=== PATIENT | female | born 1965 | race Hispanic/Latino ===

== ENCOUNTER 2017-12-07 10:27 | Emergency (ER) | payer BC ==
[2017-12-07] MEDS ORDERED: ONDANSETRON 4 MG/2 ML VIAL ONE (11:38)
[2017-12-07] MEDS ORDERED: MORPHINE 4 MG/ML SYR ONE ×2 (11:38→12:44)
[2017-12-07 11:53] LABS: Absolute Lymphocytes (CBC) 2.3 K/uL (0.7-4.9); Absolute Monocytes 0.7 K/uL (0.1-1.3); Absolute Neutrophil 2.1 K/uL (1.8-8.0); Basophils % 0.4 % (0-1.3); Eosinophils % 2.9 % (0-4.4); Hematocrit 41.6 % (36.0-45.0); Lymphocytes % 43.7 % (15.3-44.8); MCH 28.7 pg (27.0-35.0); MCV 88.8 fL (80-100); MPV 9.1 fL (7.6-11.3); Monocytes % 14.1 % (3.3-12.3); RBC Red Blood Cell Count 4.69 M/uL (3.86-4.86)
[2017-12-07 12:09] LABS: Bicarbonate 27 mEq/L (21-31); Glucose Level 96 mg/dL (65-120); Lipase 18 U/L (22-51); Potassium 3.8 mEq/L (3.6-5.0); Sodium Level 140 mEq/L (135-145)
[2017-12-07 12:15] LABS: ALT/SGPT 40 IU/L (10-60); AST/SGOT 39 IU/L (10-42); Alkaline Phosphatase 72 IU/L (42-121); Amylase Level 43 U/L (28-100); BUN Blood Urea Nitrogen 11 mg/dL (6-20); Bilirubin Direct 0.1 mg/dL (0-0.2); Bilirubin Total 0.5 mg/dL (0.3-1.2); Protein, Total 7.1 g/dL (6.0-8.3)
[2017-12-07 12:44] LABS: Urine Bacteria <20 /HPF (<20); Urine Culture Reflex Order NOT NEEDED; Urine RBC <5 /HPF (NONE SEEN)
[2017-12-07 12:44] LABS: Urine Blood NEGATIVE (NEG); Urine Glucose NEGATIVE (NEG); Urine Protein NEGATIVE (NEG); Urine pH 6.5 (5.0-7.0)
--- NOTE | 2017-12-07 13:25 | EDPHYS ---
Physician Documentation [facility] Name: Tyesha Hernandez Age: 52 yrs Sex: Female : 1965 Arrival Date: 12/07/2017 Time: 10:28 Bed 17 Private MD: Rolf Bryant ED Physician Onur Hamm HPI: 12/07 11:37 This 52 yrs old Female presents to ER via Ambulatory with complaints of tw4 Abdominal Pain. 11:37 The patient presents with abdominal pain right lower quadrant. Onset: The tw4 symptoms/episode began/occurred yesterday. The symptoms do not radiate. Associated signs and symptoms: none. The symptoms are described as sharp. Modifying factors: The symptoms are alleviated by nothing, the symptoms are aggravated by nothing. Severity of pain: At its worst the pain was moderate in the emergency department the pain is unchanged. The patient has not experienced similar symptoms in the past. 11:37 The patient has been recently seen by a physician: yesterday, [facility] tw4 FSED. 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 - Hysterectomy lk1 Historical: - Allergies: 10:53 propoxyphene napsylate; lk1 10:53 ACETAMINOPHEN; lk1 10:53 Ciprofloxacin HCl; lk1 10:53 Metronidazole HCl; lk1 10:53 Levothyroxine Sodium; lk1 10:53 Iodine; lk1 10:53 Hydrocodone-Acetaminophen; lk1 10:53 Codeine; lk1 10:53 thyroid (pork); lk1 10:53 Sulfa (Sulfonamide Antibiotics); lk1 10:53 Clarithromycin; lk1 10:53 Latex, Natural Rubber; lk1 - PMHx: 10:53 Hypothyroidism; lk1 10:53 Hernia; lk1 - PSHx: 10:53 Appendectomy; Cholecystectomy; ; Disc surgery; Hysterectomy; Bladder lk1 suspension; - Immunization history:: Adult Immunizations up to date. - Social history:: Smoking status: Patient/guardian denies using tobacco. ROS: 11:37 Constitutional: Negative for fever, chills, and weight loss, Cardiovascular: Negative tw4 for chest pain, palpitations, and edema, Respiratory: Negative for shortness of breath, cough, wheezing, and pleuritic chest pain. 11:37 Abdomen/GI: Positive for abdominal pain, Negative for nausea and vomiting, nausea, vomiting, and diarrhea, nausea. 11:37 Back: Negative for injury and pain, : Negative for injury, bleeding, discharge, and tw4 swelling, MS/Extremity: Negative for injury and deformity, Skin: Negative for injury, rash, and discoloration, Neuro: Negative for headache, weakness, numbness, tingling, and seizure. Exam: 11:37 Constitutional: This is a well developed, well nourished patient who is awake, alert, tw4 and in no acute distress. Head/Face: Normocephalic, atraumatic. Chest/axilla: Normal chest wall appearance and motion. Nontender with no deformity. No lesions are appreciated. Cardiovascular: Regular rate and rhythm with a normal S1 and S2. No gallops, murmurs, or rubs. Normal PMI, no JVD. No pulse deficits. Respiratory: Lungs have equal breath sounds bilaterally, clear to auscultation and percussion. No rales, rhonchi or wheezes noted. No increased work of breathing, no retractions or nasal flaring. MS/ Extremity: Pulses equal, no cyanosis. Neurovascular intact. Full, normal range of motion. Neuro: Awake and alert, GCS 15, oriented to person, place, time, and situation. Cranial nerves II-XII grossly intact. Motor strength 5/5 in all extremities. Sensory grossly intact. Cerebellar exam normal. Normal gait. 11:37 Abdomen/GI: Inspection: abdomen appears normal, Bowel sounds: diminished, Palpation: moderate abdominal tenderness, in the right lower quadrant. Vital Signs: 10:54 BP 128 / 65; Pulse 65; Resp 16; Temp 98.7(TE); Pulse Ox 98% on R/A; Weight 70.31 kg lk1 (R); Height 5 ft. 1 in. (154.94 cm) (R); Pain 9/10; 11:30 BP 123 / 72; Pulse 62; Resp 18; Pulse Ox 99% on R/A; Pain 8/10; em 12:44 BP 122 / 75; Pulse 56; Resp 15; Pulse Ox 98% on R/A; mh5 14:00 BP 116 / 71; Pulse 59; Resp 16; Temp 98.0; Pulse Ox 99% on R/A; Pain 7/10; em 10:54 Body Mass Index 29.29 (70.31 kg, 154.94 cm) lk1 MDM: 10:55 Patient medically screened. tw4 11:37 Data reviewed: vital signs, nurses notes. Counseling: I had a detailed discussion with 4 the patient and/or guardian regarding: the historical points, exam findings, and any diagnostic results supporting the discharge/admit diagnosis. 12/07 10:55 Order name: Amylase, Serum; Complete Time: 12:41 [facility] 12/07 10:55 Order name: Basic Metabolic Panel; Complete Time: 12:41 4 12/07 10:55 Order name: CBC with Diff; Complete Time: 12:41 4 12/07 10:55 Order name: Creatinine for Radiology; Complete Time: 12:41 [facility] 12/07 10:55 Order name: Hepatic Function; Complete Time: 12:41 [facility] 12/07 10:55 Order name: Lipase; Complete Time: 12:41 [facility] 12/07 10:55 Order name: Urine Microscopic Only; Complete Time: 13:16 [facility] 12/07 12:22 Order name: Urine Dipstick--Ancillary (enter results); Complete Time: 13:16 12/07 10:55 Order name: IV Saline Lock; Complete Time: 12:16 4 12/07 10:55 Order name: Labs collected and sent; Complete Time: 12:16 [facility] 12/07 10:55 Order name: Urine Dipstick-Ancillary (obtain specimen); Complete Time: 12:16 tw4 Administered Medications: 11:47 Drug: morphine 4 mg Route: IVP; Site: right antecubital; iw 12:16 Follow up: Response: No adverse reaction; Pain is decreased em 11:47 Drug: Zofran 4 mg Route: IVP; Site: right antecubital; iw 12:17 Follow up: Response: No adverse reaction em 12:44 Drug: morphine 2 mg Route: IVP; Site: right antecubital; em 13:51 Follow up: Response: No adverse reaction em 14:02 Drug: TORadol 30 mg Route: IVP; Site: right antecubital; iw 14:07 Follow up: Response: Medication administered at discharge. em Disposition: 12/07/17 13:24 Discharged to Home. Impression: Generalized abdominal pain. - Condition is Stable. - Discharge Instructions: Abdominal Pain, Adult, Pain Without a Known Cause, Abdominal Pain, Women. - Medication Reconciliation Form, Thank You Letter, Antibiotic Education, Prescription Opioid Use form. - Follow up: Emergency Department; When: As needed; Reason: Recheck today's complaints, Continuance of care, Re-evaluation by your physician. - Problem is an ongoing problem. - Symptoms are unchanged. Signatures: Dispatcher [employer] Orion Anguiano, HEAD OF PARTNER DEVELOPMENT HEAD OF PARTNER DEVELOPMENT Sakshi Wallace RN RN iw Elise Mayo RN RN lk1 Onur Hamm MD MD tw4 Corrections: (The following items were deleted from the chart) 12:43 12:41 Abdomen 1 View (KUB)+RAD.RAD.BRZ ordered. [facility]
--- NOTE | 2017-12-07 13:25 | ER ---
Nurse's Notes [facility] Name: Tyesha Hernandez Age: 52 yrs Sex: Female : 1965 Arrival Date: 12/07/2017 Time: 10:28 Bed 17 Private MD: Rolf Bryant Diagnosis: Generalized abdominal pain Presentation: 12/07 10:49 Presenting complaint: Patient states: I have a really bad pain on my side (RLQ) for 3 lk1 days. I was at [facility] yesterday \T\ had an MRI and they told me I had scar tissue in there and I need to see my GI doctor. I have had a lot of surgeries. Transition of care: patient was not received from another setting of care. Onset of symptoms was December 04, 2017. Care prior to arrival: None. 10:49 Method Of Arrival: Ambulatory lk1 10:49 Acuity: GATO 3 lk1 Triage Assessment: 10:53 General: Appears in no apparent distress. uncomfortable, Behavior is calm, cooperative, lk1 appropriate for age. Pain: Complains of pain in suprapubic area and right lower quadrant Pain currently is 9 out of 10 on a pain scale. GI: Patient currently denies diarrhea, nausea, vomiting. 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 - Hysterectomy lk1 Historical: - Allergies: 10:53 propoxyphene napsylate; lk1 10:53 ACETAMINOPHEN; lk1 10:53 Ciprofloxacin HCl; lk1 10:53 Metronidazole HCl; lk1 10:53 Levothyroxine Sodium; lk1 10:53 Iodine; lk1 10:53 Hydrocodone-Acetaminophen; lk1 10:53 Codeine; lk1 10:53 thyroid (pork); lk1 10:53 Sulfa (Sulfonamide Antibiotics); lk1 10:53 Clarithromycin; lk1 10:53 Latex, Natural Rubber; lk1 - PMHx: 10:53 Hypothyroidism; lk1 10:53 Hernia; lk1 - PSHx: 10:53 Appendectomy; Cholecystectomy; ; Disc surgery; Hysterectomy; Bladder lk1 suspension; - Immunization history:: Adult Immunizations up to date. - Social history:: Smoking status: Patient/guardian denies using tobacco. Screenin:47 Abuse screen: Denies threats or abuse. Nutritional screening: No deficits noted. em Tuberculosis screening: No symptoms or risk factors identified. Fall Risk None identified. Assessment: 11:30 General: Appears in no apparent distress. uncomfortable, Behavior is cooperative, em crying. Pain: Complains of pain in right lower quadrant Pain currently is 10 out of 10 on a pain scale. Quality of pain is described as sharp, Pain began 2-3 days ago. Neuro: Level of Consciousness is awake, alert, obeys commands, Oriented to person, place, time, situation. Cardiovascular: Capillary refill < 3 seconds Patient's skin is warm and dry. Respiratory: Airway is patent Respiratory effort is even, unlabored, Respiratory pattern is regular, symmetrical. GI: Abdomen is round non-distended, Bowel sounds present X 4 quads. Abd is soft X 4 quads Abdomen is tender to palpation in right lower quadrant and left lower quadrant. : Urine is clear. EENT: No signs and/or symptoms were reported regarding the EENT system. Derm: Skin is intact, Skin is pink, warm \T\ dry. Musculoskeletal: Range of motion: intact in all extremities. 11:36 General: The previous assessment is accurate, call light remains within reach. . ss 12:29 Reassessment: Patient appears in no apparent distress at this time. Patient and/or em family updated on plan of care and expected duration. Pain level reassessed. Patient is alert, oriented x 3, equal unlabored respirations, skin warm/dry/pink. 13:25 Reassessment: Patient appears in no apparent distress at this time. Patient and/or em family updated on plan of care and expected duration. Pain level reassessed. Patient is alert, oriented x 3, equal unlabored respirations, skin warm/dry/pink. Patient states feeling better. Vital Signs: 10:54 BP 128 / 65; Pulse 65; Resp 16; Temp 98.7(TE); Pulse Ox 98% on R/A; Weight 70.31 kg lk1 (R); Height 5 ft. 1 in. (154.94 cm) (R); Pain 9/10; 11:30 BP 123 / 72; Pulse 62; Resp 18; Pulse Ox 99% on R/A; Pain 8/10; em 12:44 BP 122 / 75; Pulse 56; Resp 15; Pulse Ox 98% on R/A; mh5 14:00 BP 116 / 71; Pulse 59; Resp 16; Temp 98.0; Pulse Ox 99% on R/A; Pain 7/10; em 10:54 Body Mass Index 29.29 (70.31 kg, 154.94 cm) lk1 ED Course: 10:28 Patient arrived in ED. as 10:28 Rolf Bryant MD is Private Physician. as 10:50 Triage completed. lk1 10:54 Arm band placed on right wrist. lk1 10:55 Onur Hamm MD is Attending Physician. tw4 11:08 Orion Lee LVN is Primary Nurse. em 12:39 Urine collected: clean catch specimen, clear. 5 12:40 No provider procedures requiring assistance completed. Initial lab(s) drawn, by me, em sent to lab. Inserted saline lock: 20 gauge in right antecubital area, using aseptic technique. Blood collected. 12:47 Patient has correct armband on for positive identification. Bed in low position. Call em light in reach. Side rails up X2. 14:09 IV discontinued, intact, bleeding controlled, No redness/swelling at site. Pressure em dressing applied. Administered Medications: 11:47 Drug: morphine 4 mg Route: IVP; Site: right antecubital; iw 12:16 Follow up: Response: No adverse reaction; Pain is decreased em 11:47 Drug: Zofran 4 mg Route: IVP; Site: right antecubital; iw 12:17 Follow up: Response: No adverse reaction em 12:44 Drug: morphine 2 mg Route: IVP; Site: right antecubital; em 13:51 Follow up: Response: No adverse reaction em 14:02 Drug: TORadol 30 mg Route: IVP; Site: right antecubital; iw 14:07 Follow up: Response: Medication administered at discharge. em Outcome: 13:24 Discharge ordered by . tw4 14:08 Discharged to home ambulatory. em 14:08 Condition: good 14:08 Discharge instructions given to patient, Instructed on discharge instructions, follow up and referral plans. Demonstrated understanding of instructions, follow-up care. 14:13 Patient left the ED. em Signatures: Orion Lee LVN LVN em Kaleigh Ch Irene, RN RN Asya Crowley RN RN Elise Mayo RN RN [facility] Norma Ch [facility] Noris, Onur, MD MD tw4
[2017-12-07] MEDS ORDERED: KETOROLAC 30 MG/ML INJ ONE (14:13)
[2017-12-07 14:29] VITALS: BP 116/71; TEMP 98; O2SAT 99
== END 2017-12-07 14:13 | disposition home or self-care (01) ==
LOC: ER 10:27
DX: R10.84 Generalized abdominal pain (principal); E03.9 Hypothyroidism, unspecified; Z88.2 Allergy status to sulfonamides; Z88.3 Allergy status to other anti-infective agents; Z88.5 Allergy status to narcotic agent; Z88.6 Allergy status to analgesic agent; Z91.040 Latex allergy status; Z91.048 Other nonmedicinal substance allergy status
CPT/HCPCS: 36415; 80048; 80076; 81003; 81015; 82150; 83690; 85025; 96374; 96375; 99284; J2405

== ENCOUNTER 2019-04-05 11:15 | Emergency (ER) | payer BC ==
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
--- OUTSIDE RECORDS SUMMARY | 2019-04-05 11:20 | XMS REPORT | Summary of Care ---
:1965 Author Encounter HQ Rachel_margarita(MIRELLA) [id number] Date(s): 01/23/15 - 01/23/15 [facility] Outpatient Imaging [address] [address]- [phone] Discharge Disposition: Home Physician Attending: Dion Pride MD Vital Signs No data available for this section Problem List No data available for this section Allergies, Adverse Reactions, Alerts Substance Reaction Severity Status Biaxin Active codeine Active Flagyl Active iodine topical Active Latex Active morphine Active sulfa drugs Active tape Active Medications No data available for this section Results No data available for this section Immunizations No data available for this section Procedures No data available for this section Social History No data available for this section Assessment and Plan No data available for this section
--- OUTSIDE RECORDS SUMMARY | 2019-04-05 11:20 | XMS REPORT | Summary of Care ---
:1965 Author Encounter FANNY Parikh(MIRELLA) [id number] Date(s): 02/06/15 - 02/06/15 [facility] Outpatient Imaging [address] [address]- [phone] Discharge Disposition: Home Physician Attending: Dion Pride MD Vital Signs No data available for this section Problem List Condition Effective Dates Status Health Status Informant AMI (acute myocardial Resolved infarction)(Confirmed) Asthma(Confirmed) Resolved DVT (deep venous < 2010 Resolved thrombosis)(Confirmed)1 Hypothyroidism(Confirmed) Resolved Polycystic ovarian Resolved disease(Confirmed) 1left leg Allergies, Adverse Reactions, Alerts Substance Reaction Severity Status Biaxin Active ciprofloxacin Active codeine Active Flagyl Active HYDROcodone Active iodine topical Active Latex Active sulfa drugs Active tape Active Medications No data available for this section Results No data available for this section Immunizations No data available for this section Procedures No data available for this section Social History Social History Type Response Smoking Status Never smoker; Exposure to Tobacco Smoke None; Cigarette Smoking Last 365 Days No; Reg Smoking Cessation Counseling No Assessment and Plan No data available for this section
--- OUTSIDE RECORDS SUMMARY | 2019-04-05 11:20 | XMS REPORT | Summary of Care ---
:1965 Author Organization [facility] Outpatient Imaging [place] Address [address] [place], [place] [address]- Encounter HQ Encntr_alidieudonne(FIN) [id number] Date(s): 06/03/17 - 06/03/17 [facility] Outpatient Imaging [address], [address] [place] [address]- [phone] Discharge Disposition: Home or Self Care Attending Physician: Kaylee Menendez MD Vital Signs No data available for [...]
--- OUTSIDE RECORDS SUMMARY | 2019-04-05 11:20 | XMS REPORT | Summary of Care ---
:1965 Author Organization [facility] Address [address] [place] [address]- Encounter HQ Jl(FIN) [id number] Date(s): 07/30/18 - 07/30/[address] [phone] Encounter Diagnosis Other intervertebral disc displacement, lumbosacral region (Final) - 08/04/18 Spinal stenosis, lumbar region without neurogenic claudication (Final) - Other intervertebral disc degeneration, lumbar region (Final) - Other specified postprocedural states (Final) - Discharge Disposition: Home or Self Care Attending Physician: Zoila Cunha MD Referring Physician: Physician, Non Associated MD Vital Signs No data available for this section Problem List Condition Effective Dates Status Health Status Informant AMI (acute myocardial Resolved infarction)(Confirmed) Asthma(Confirmed) Resolved DVT (deep venous < 2010 Resolved thrombosis)(Confirmed)1 Hypothyroidism(Confirmed) Resolved Polycystic ovarian Resolved disease(Confirmed) 1left leg Allergies, Adverse Reactions, Alerts Substance Reaction Severity Status tape Active sulfa drugs Active iodine topical Active ciprofloxacin Active codeine Active Flagyl Active Biaxin Active Latex Active HYDROcodone Active Medications No data available for this section Results Most recent to oldest [Reference Range]: 1 eGFR 114 mL/min/1.73m2 1 *NA* (07/30/18 7:10 AM) Creatinine Lvl [0.50-1.40 mg/dL] 0.47 mg/dL *LOW* (07/30/18 7:10 AM) 1Result Comment: The eGFR is calculated using the CKD-EPI formula. In most young , healthy individualsthe eGFR will be >90 mL/min/1.73m2. The eGFR declines with age. An eGFR of 60-89 may be normal insome populations, particularly the elderly, for whom the CKD-EPI formula has not been extensively validated. Use of the eGFR is not recommended in the following populations: Individuals with unstable creatinine concentrations, including patients and those with serious co-morbid conditions. Patients with extremes in muscle mass or diet. The data above are obtained from the National Kidney Disease Education Program ( NKDEP) which additionally recommends that when the eGFR is used in patients with extremes of body mass index for purposesof drug dosing, the eGFR should be multiplied by the estimated BMI. Immunizations No data available for this section Procedures No data available for this section Social History Social History Type Response Smoking Status Never smoker; Exposure to Tobacco Smoke None; Cigarette Smoking Last 365 Days No; Reg Smoking Cessation Counseling No entered on: 12/06/17 Assessment and Plan No data available for this section
--- OUTSIDE RECORDS SUMMARY | 2019-04-05 11:20 | XMS REPORT | Summary of Care ---
:1965 Author Encounter FANNY Parikh(MIRELLA) [id number] Date(s): 01/29/15 - 01/29/15 [facility] [address] [place] [address]- Discharge Diagnosis: Abdominal hematoma Discharge Disposition: Home Physician Attending: Julio Encinas MD Vital Signs Most recent to oldest [Reference Range]: 1 Height 162.56 cm (01/29/15 2:26 PM) Temperature Oral [96.4-99.1 DegF] 97.2 DegF (01/29/15 2:26 PM) Blood Pressure [90-140/60-90 mmHg] 116/54 mmHg (01/29/15 2:26 PM) Respiratory Rate [14-20 BRMIN] 16 BRMIN (01/29/15 2:26 PM) Peripheral Pulse Rate [60-100 bpm] 82 bpm (01/29/15 2:26 PM) Weight 74.545 kg (01/29/15 2:26 PM) Body Mass Index 28.21 m2 (01/29/15 2:26 PM) Problem List Condition Effective Dates Status Health [...]
--- OUTSIDE RECORDS SUMMARY | 2019-04-05 11:20 | XMS REPORT | Summary of Care ---
:1965 Author Organization [facility] Address [address] [place] [address]- Encounter HQ Jl(FIN) [id number] Date(s): 12/06/17 - 12/06/[address] [phone] Encounter Diagnosis Abdominal pain in female (Discharge Diagnosis) - 12/06/17 Unspecified ovarian cyst, left side (Final) - 12/11/17 Discharge Disposition: Home or Self Care Attending Physician: Kayla Vivas MD Vital Signs Most recent to oldest [Reference 1 2 3 Range]: Height 154.94 cm (12/06/17 1:37 PM) Temperature Oral [96.4-99.1 DegF] 98.2 DegF 98.3 DegF 98 DegF (12/06/17 6:42 PM) (12/06/17 5:40 PM) (12/06/17 1:37 PM) Blood Pressure [90-140/60-90 mmHg] 110/72 mmHg 129/69 mmHg 130/70 mmHg (12/06/17 6:42 PM) (12/06/17 5:40 PM) (12/06/17 1:37 PM) Respiratory Rate [14-20 BRMIN] 16 BRMIN 17 BRMIN 16 BRMIN (12/06/17 6:42 PM) (12/06/17 5:40 PM) (12/06/17 1:37 PM) Peripheral Pulse Rate [60-100 bpm] 76 bpm 65 bpm 61 bpm (12/06/17 6:42 PM) (12/06/17 5:40 PM) (12/06/17 1:37 PM) Weight 72.727 kg (12/06/17 1:37 PM) Body Mass Index 30.29 m2 (12/06/17 1:37 PM) Problem List Condition Effective Dates Status Health Status Informant AMI (acute myocardial Resolved infarction)(Confirmed) Asthma(Confirmed) Resolved DVT (deep venous < 2011 Resolved thrombosis)(Confirmed)1 Hypothyroidism(Confirmed) Resolved Polycystic ovarian Resolved disease(Confirmed) 1left leg Allergies, Adverse Reactions, Alerts Substance Reaction Severity Status tape Active sulfa drugs Active iodine topical Active ciprofloxacin Active codeine Active Flagyl Active Biaxin Active Latex Active HYDROcodone Active Medications morphine Sulfate 4 mg, Route: IVP, ONCE, Dosing Weight 72.727, kg, Priority: STAT, Start date: 16:47:00 CDT,Stop date: 12/06/17 16:47:00 CDT Start Date: 12/06/17 Stop Date: 12/06/17 Status: Completedmorphine Sulfate 4 mg, 1 mL, Route: IVP, Drug form: SOLN, ONCE, Dosing Weight 72.727, kg, Priority: STAT, Start date:12/06/17 13:40:00 CDT, Stop date: 12/06/17 13:40:00 CDT Notes: (Same as:MORPhine Sulfate) Start Date: 12/06/17 Stop Date: 12/06/17 Status: Completedondansetron 4 mg, 2 mL, Route: IVP, Drug form: INJ, ONCE, Dosing Weight 72.727, kg, Priority : STAT, Start date: 12/06/17 13:40:00 CDT, Stop date: 12/06/17 13:40:00 CDT Notes: (Same as: Cecil) MEDICATION WASTE Product Size: 4 mgProduct Wasted: ___ mg Start Date: 12/06/17 Stop Date: 12/06/17 Status: CompletedSaline Flush 0.9% 10 mL, Route: IVP, Drug Form: INJ, Dosing Weight 74.545, kg, PRN, PRN Line Flush , Start date: 12/06/17 13:40:00 CDT, Duration: 30 day, Stop date: 01/05/18 13:39 :00 CDT Notes: (Same as: BD Posiflush) Start Date: 12/06/17 Stop Date: 12/06/17 Status: DiscontinuedSodium Chloride 0.9% (Bolus) IV 1,000 mL, 1000 ml/hr, Infuse Over: 1 hr, Route: IV, 1,000, Drug form: INJ, ONCE , Priority: STAT, Dosing Weight 72.727 kg, Start date: 12/06/17 13:40:00 CDT, Stop date: 12/06/17 13:40:00 CDT Start Date: 12/06/17 Stop Date: 12/06/17 Status: Completed Results ELECTROLYTES Most recent to oldest [Reference Range]: 1 Sodium Lvl [135-145 mEq/L] 140 mEq/L (12/06/17 1:51 PM) Potassium Lvl [3.5-5.1 mEq/L] 3.5 mEq/L (12/06/17 1:51 PM) Chloride Lvl [95-109 mEq/L] 108 mEq/L (12/06/17 1:51 PM) CO2 [24-32 mEq/L] 29 mEq/L (12/06/17 1:51 PM) AGAP [10.0-20.0 mEq/L] 6.5 mEq/L *LOW* (12/06/17 1:51 PM) CHEM PANEL Most recent to oldest [Reference Range]: 1 Creatinine Lvl [0.50-1.40 mg/dL] 0.53 mg/dL (12/06/17 1:51 PM) eGFR 110 mL/min/1.73m2 1 *NA* (12/06/17 1:51 PM) BUN [7-22 mg/dL] 9 mg/dL (12/06/17 1:51 PM) B/C Ratio [6-25] 17 (12/06/17 1:51 PM) Glucose Lvl [70-99 mg/dL] 81 mg/dL (12/06/17 1:51 PM) Total Protein [6.4-8.4 g/dL] 7.6 g/dL (12/06/17 1:51 PM) Albumin Lvl [3.5-5.0 g/dL] 3.5 g/dL (12/06/17 1:51 PM) Globulin [2.7-4.2 g/dL] 4.1 g/dL (12/06/17 1:51 PM) A/G Ratio [0.7-1.6] 0.9 (12/06/17 1:51 PM) Calcium Lvl [8.5-10.5 mg/dL] 8.7 mg/dL (12/06/17 1:51 PM) ALT [0-65 unit/L] 36 unit/L (12/06/17 1:51 PM) AST [0-37 unit/L] 26 unit/L (12/06/17 1:51 PM) Alk Phos [39-136 unit/L] 86 unit/L (12/06/17 1:51 PM) Bili Total [0.2-1.3 mg/dL] 0.3 mg/dL (12/06/17 1:51 PM) Lipase Lvl [73-393 unit/L] 133 unit/L (12/06/17 1:51 PM) 1Result Comment: The eGFR is calculated using [...] eGFR should be multiplied by the estimated BMI.ENDOCRINOLOGY Most recent to oldest [Reference Range]: 1 hCG Tot <1 mIU/mL *NA* (12/06/17 1:51 PM) URINE AND STOOL Most recent to oldest [Reference Range]: 1 UA Turbidity [Clear] Clear (12/06/17 1:51 PM) UA Color [Yellow] Yellow *NA* (12/06/17 1:51 PM) UA pH [5.0-8.0] 6.0 (12/06/17 1:51 PM) UA Spec Grav [<=1.030] 1.010 (12/06/17 1:51 PM) UA Glucose [Negative mg/dL] Negative mg/dL *NA* (12/06/17 1:51 PM) UA Blood [Negative] Negative (12/06/17 1:51 PM) UA Ketones [Negative mg/dL] Negative mg/dL *NA* (12/06/17 1:51 PM) UA Protein [Negative mg/dL] Negative mg/dL (12/06/17 1:51 PM) UA Urobilinogen [0.1-1.0 mg/dL] <=1.0 mg/dL *NA* (12/06/17 1:51 PM) UA Bili [Negative] Negative *NA* (12/06/17 1:51 PM) UA Leuk Est [Negative] Negative (12/06/17 1:51 PM) UA Nitrite [Negative] Negative (12/06/17 1:51 PM) UA WBC [0-5 /HPF] <1 /HPF (12/06/17 1:51 PM) UA RBC [0-2 /HPF] 2 /HPF (12/06/17 1:51 PM) UA Bacteria [None Seen /HPF] Occasional /HPF *NA* (12/06/17 1:51 PM) UA Sq Epi [Few /LPF] Occasional /LPF *NA* (12/06/17 1:51 PM) UA Mucus [None Seen /LPF] Few /LPF *NA* (12/06/17 1:51 PM) HEMATOLOGY Most recent to oldest [Reference Range]: 1 WBC [3.7-10.4 K/CMM] 6.6 K/CMM (12/06/17 1:51 PM) RBC [4.20-5.40 M/CMM] 4.77 M/CMM (12/06/17 1:51 PM) Hgb [12.0-16.0 g/dL] 14.2 g/dL (12/06/17 1:51 PM) Hct [36.0-48.0 %] 41.3 % (12/06/17 1:51 PM) MCV [80.0-98.0 fL] 86.6 fL (12/06/17 1:51 PM) MCH [27.0-31.0 pg] 29.8 pg (12/06/17 1:51 PM) MCHC [32.0-36.0 g/dL] 34.4 g/dL (12/06/17 1:51 PM) RDW [11.5-14.5 %] 16.3 % *HI* (12/06/17 1:51 PM) MPV [7.4-10.4 fL] 8.5 fL (12/06/17 1:51 PM) Platelet [133-450 K/CMM] 267 K/CMM (12/06/17 1:51 PM) Segs [45.0-75.0 %] 45.0 % (12/06/17 1:51 PM) Lymphocytes [20.0-40.0 %] 38.7 % (12/06/17 1:51 PM) Monocytes [2.0-12.0 %] 12.7 % *HI* (12/06/17 1:51 PM) Eosinophils [0.0-4.0 %] 3.1 % (12/06/17 1:51 PM) Basophils [0.0-1.0 %] 0.5 % (12/06/17 1:51 PM) Segs-Bands # [1.5-8.1 K/CMM] 3.0 K/CMM (12/06/17 1:51 PM) Lymphocytes # [1.0-5.5 K/CMM] 2.6 K/CMM (12/06/17 1:51 PM) Monocytes # [0.0-0.8 K/CMM] 0.8 K/CMM (12/06/17 1:51 PM) Eosinophils # [0.0-0.5 K/CMM] 0.2 K/CMM (12/06/17 1:51 PM) PT [12.0-14.7 seconds] 12.1 seconds (12/06/17 1:51 PM) INR [0.85-1.17] 0.90 (12/06/17 1:51 PM) PTT [22.9-35.8 seconds] 25.1 seconds (12/06/17 1:51 PM) Immunizations No data available for this section Procedures No data available for this section Social History Social History Type Response Smoking Status Never smoker; Exposure to Tobacco Smoke None; Cigarette Smoking Last 365 Days No; Reg Smoking Cessation Counseling No entered on: 12/06/17 Assessment and Plan No data available for this section
--- NOTE | 2019-04-05 12:41 | RAD REPORT ---
EXAM DESCRIPTION: CT - Head Brain Wo Cont - 04/05/2019 12:22 pm CLINICAL HISTORY: HEADACHE, left-side COMPARISON: CT; Head^01_ROUTINE_HEAD (Adult) 08/07/2014; . TECHNIQUE: Axial 5 mm thick images of the head were obtained without IV contrast. All CT scans are performed using dose optimization technique as appropriate and may include automated exposure control or mA/KV adjustment according to patient size. FINDINGS: No intracranial hemorrhage, mass, edema or shift of mid-line structures. No acute infarcti on changes seen. No abnormal extra-axial fluid collections. Ventricles are normal. Mastoid air cells and visualized portions of the paranasal sinuses are clear. No acute bony findings. Intracranial findings are similar to comparison. IMPRESSION: Negative non-contrast CT head examination.
--- NOTE | 2019-04-05 12:49 | EDPHYS ---
Physician Documentation [facility] Name: Tyesha Hernandez Age: 54 yrs Sex: Female : 1965 Arrival Date: 04/05/2019 Time: 11:18 Bed 16 Private MD: Rolf Bryant ED Physician Romulo Torres HPI: 04/05 12:12 This 54 yrs old Female presents to ER via Ambulatory with complaints of rn Headache, Eye Problem, Eye Pain. 12:12 The patient complains of pain to the left side of head. The patient describes the rn headache as aching. Onset: The symptoms/episode began/occurred yesterday. Severity of symptoms: At its worst the pain was mild, in the emergency department the pain is unchanged. Headache History: Denies prior headaches. The symptoms are alleviated by nothing. the symptoms are aggravated by nothing. The patient has not experienced similar symptoms in the past. The patient has been recently seen by a physician:. Reports red eye started Thursday, no trauma or straining, seen by her eye doctor, told her pressures were normal and that was from busted blood vessel. No focal neurological complaint, vision is at baseline, concerned when headache started because has family history of strokes and diabetes. . 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 - Family history:: not pertinent. - Social history:: Smoking status: unknown. - Ebola Screening: : No symptoms or risks identified at this time. - Hospitalizations: : No recent hospitalization is reported. ROS: 12:12 Constitutional: Negative for fever, chills, and weight loss, Eyes: + redness/blood of rn left eye Neck: Negative for injury, pain, and swelling, Cardiovascular: Negative for chest pain, palpitations, and edema, Respiratory: Negative for shortness of breath, cough, wheezing, and pleuritic chest pain, Abdomen/GI: Negative for abdominal pain, nausea, vomiting, diarrhea, and constipation, MS/Extremity: Negative for injury and deformity, Skin: Negative for injury, rash, and discoloration, Neuro: + headache, no focal weakness/numbness Exam: 12:12 Constitutional: This is a well developed, well nourished patient who is awake, alert, rn and in no acute distress. Head/Face: Normocephalic, atraumatic. Eyes: + left subconjunctival hemorrhage, PERRL, no signs of trauma, no corneal defect, no hyphema or hypopyon. Neuro: Awake and alert, GCS 15, oriented to person, place, time, and situation. Cranial nerves II-XII grossly intact. Motor strength 5/5 in all extremities. Sensory grossly intact. Cerebellar exam normal. Normal gait. Vital Signs: 11:29 BP 121 / 77; Pulse 71; Resp 18; Temp 97.8(TE); Pulse Ox 99% on R/A; Weight 68.04 kg; hj Height 5 ft. 1 in. (154.94 cm); Pain 8/10; 11:29 Body Mass Index 28.34 (68.04 kg, 154.94 cm) hj Ke Coma Score: 12:45 Eye Response: spontaneous(4). Verbal Response: oriented(5). Motor Response: obeys rn commands(6). Total: 15. MDM: 12:06 Patient medically screened. rn 12:45 Differential diagnosis: glaucoma, hypertensive headache, migraine, neoplasm, tension rn headache. Data reviewed: vital signs, nurses notes, radiologic studies, CT scan, and as a result, I will discharge patient. Counseling: I had a detailed discussion with the patient and/or guardian regarding: the historical points, exam findings, and any diagnostic results supporting the discharge/admit diagnosis, the need for outpatient follow up, to return to the emergency department if symptoms worsen or persist or if there are any questions or concerns that arise at home. Special discussion: I discussed with the patient/guardian in detail that at this point there is no indication for admission to the hospital. It is understood, however, that if the symptoms persist or worsen the patient needs to return immediately for re-evaluation. Based on the history and exam findings, there is no indication for further emergent testing or inpatient evaluation. I discussed with the patient/guardian the need to see the opthamologist for further evaluation of the symptoms. ED course: CT head negative, normal neuro exam, seen by ophthalmology when this started and pressures and rest of exam normal per patient, will dc home with return precautions and instructions to f/u with eye doctor again if persists.. 04/05 12:12 Order name: CT Head Brain wo Cont; Complete Time: 12:45 rn Administered Medications: No medications were administered Disposition: 04/05/19 12:48 Discharged to Home. Impression: Headache, Subconjunctival hemorrhage. - Condition is Stable. - Discharge Instructions: General Headache Without Cause, Subconjunctival Hemorrhage. - Medication Reconciliation Form, Thank You Letter, Antibiotic Education, Prescription Opioid Use, Work release form form. - Follow up: Private Physician; When: As needed; Reason: Recheck today's complaints, Re-evaluation by your physician. - Problem is an ongoing problem. - Symptoms have improved. Signatures: Dispatcher [employer] EDMS Romulo Torres MD MD rn Joaquin, Henry, RN RN hj Leal, Jahala, RN RN jl7 Corrections: (The following items were deleted from the chart) 13:20 12:48 04/05/2019 12:48 Discharged to Home. Impression: Headache; Subconjunctival jl7 hemorrhage. Condition is Stable. Forms are Medication Reconciliation Form, Thank You Letter, Antibiotic Education, Prescription Opioid Use. Follow up: Private Physician; When: As needed; Reason: Recheck today's complaints, Re-evaluation by your physician. Problem is an ongoing problem. Symptoms have improved. rn
--- NOTE | 2019-04-05 12:49 | ER ---
Nurse's Notes [facility] Name: Tyesha Hernandez Age: 54 yrs Sex: Female : 1965 Arrival Date: 04/05/2019 Time: 11:18 Bed 16 Private MD: Rolf Bryant Diagnosis: Headache;Subconjunctival hemorrhage Presentation: 04/05 11:28 Presenting complaint: Patient states: my L eye has been really red since Thursday and the hj L side headache that goes with it, im concerned about it;denies N/V;. Transition of care: patient was not received from another setting of care. Onset of symptoms was April 05, 2019. Risk Assessment: Do you want to hurt yourself or someone else? Patient reports no desire to harm self or others. Initial Sepsis Screen: Does the patient meet any 2 criteria? No. Patient's initial sepsis screen is negative. Does the patient have a suspected source of infection? No. Patient's initial sepsis screen is negative. Care prior to arrival: None. 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 - Family history:: not pertinent. - Social history:: Smoking status: unknown. - Ebola Screening: : No symptoms or risks identified at this time. - Hospitalizations: : No recent hospitalization is reported. Screenin:00 Abuse screen: Denies threats or abuse. Denies injuries from another. Nutritional jl7 screening: No deficits noted. Tuberculosis screening: No symptoms or risk factors identified. Fall Risk None identified. Assessment: 12:00 General: Appears in no apparent distress. uncomfortable. Pain: Complains of pain in jl7 left eye and left orthodoxy Pain does not radiate. Pain currently is 8 out of 10 on a pain scale. Pain began 2-3 days ago. Is continuous. Neuro: Level of Consciousness is awake, alert, obeys commands, Oriented to person, place, time, situation, Speech is normal, Facial symmetry appears normal. Cardiovascular: Patient's skin is warm and dry. Respiratory: Airway is patent Respiratory effort is even, unlabored, Respiratory pattern is regular, symmetrical. EENT: Sclera/Cornea are reddened in outer aspect of conjuctiva of left eye and inner aspect of conjunctiva of left eye. Derm: Skin is pink, warm \T\ dry. Vital Signs: 11:29 BP 121 / 77; Pulse 71; Resp 18; Temp 97.8(TE); Pulse Ox 99% on R/A; Weight 68.04 kg; hj Height 5 ft. 1 in. (154.94 cm); Pain 8/10; 11:29 Body Mass Index 28.34 (68.04 kg, 154.94 cm) hj Regina Coma Score: 12:45 Eye Response: spontaneous(4). Verbal Response: oriented(5). Motor Response: obeys rn commands(6). Total: 15. ED Course: 11:18 Patient arrived in ED. dp 11:19 Rolf Bryant MD is Private Physician. dp 11:29 Triage completed. hj 11:29 Arm band placed on right wrist. hj 11:38 Antionette Birmingham RN is Primary Nurse. jl7 12:00 Patient has correct armband on for positive identification. Bed in low position. Call jl7 light in reach. Side rails up X 1. Pulse ox on. NIBP on. 12:06 Romulo Torres MD is Attending Physician. rn 12:26 CT Head Brain wo Cont In Process Unspecified. EDMS 13:19 No provider procedures requiring assistance completed. Patient did not have IV access jl7 during this emergency room visit. Administered Medications: No medications were administered Outcome: 12:48 Discharge ordered by MD. rn 13:19 Discharged to home ambulatory. jl7 13:19 Condition: stable 13:19 Discharge instructions given to patient, Instructed on discharge instructions, follow up and referral plans. Demonstrated understanding of instructions, follow-up care. 13:20 Patient left the ED. jl7 Signatures: Dispatcher [employer] EDMS Romulo Torres MD MD rn Joaquin, Henry RN Antionette Marin RN RN jl7 Jose Bullard Corrections: (The following items were deleted from the chart) 11:31 11:29 Pulse 71bpm; Resp 18bpm; Pulse Ox 99% RA; Temp 97.8F Temporal; 68.04 kg; Height 5 hj ft. 1 in.; BMI: 28.3; Pain 8/10; hj
[2019-04-05 14:00] VITALS: BP 121/77; TEMP 97.8; O2SAT 99
== END 2019-04-05 13:20 | disposition home or self-care (01) ==
LOC: ER 11:15
DX: H11.30 Conjunctival hemorrhage, unspecified eye (principal); R51 Headache; Z91.040 Latex allergy status; E03.9 Hypothyroidism, unspecified; Z88.5 Allergy status to narcotic agent; Z88.2 Allergy status to sulfonamides; Z88.8 Allergy status to other drugs, medicaments and biological substances; Z88.6 Allergy status to analgesic agent; Z88.1 Allergy status to other antibiotic agents
CPT/HCPCS: 70450; 99283

== ENCOUNTER 2019-07-15 22:19 | Emergency (ER) | payer BC ==
[2019-07-15] MEDS ORDERED: ONDANSETRON 4 MG (ODT) TAB ONE (22:56)
[2019-07-15] MEDS ORDERED: MORPHINE 2 MG/ML SYR ONE (22:59)
[2019-07-15] MEDS ORDERED: MORPHINE 4 MG/ML SYR ONE (23:00)
[2019-07-16] MEDS ORDERED: MORPHINE 2 MG/ML SYR ONE (01:19)
[2019-07-16] MEDS ORDERED: IBUPROFEN 400 MG TAB ONE (01:20)
[2019-07-16] MEDS ORDERED: MORPHINE 4 MG/ML SYR ONE (01:20)
[2019-07-16] MEDS ORDERED: IBUPROFEN 200 MG TAB PO ONE (01:20)
--- NOTE | 2019-07-16 01:21 | ER ---
Nurse's Notes [facility] Name: Tyesha Hernandez Age: 54 yrs Sex: Female : 1965 Arrival Date: 07/15/2019 Time: 22:21 Bed 20 Private MD: Diagnosis: acute R shoulder sprain Presentation: 07/15 22:44 Presenting complaint: Patient states: "I was walking around wearing socks on our wooden cc3 floor and I accidentally slipped backwards and hit my right side on the floor. I now have pain on my right arm, shoulder and buttock" Patient denies head injury and denies loss of consciousness. Transition of care: patient was not received from another setting of care. Onset of symptoms was July 15, 2019 at 22:00. Risk Assessment: Do you want to hurt yourself or someone else? Patient reports no desire to harm self or others. Initial Sepsis Screen: Does the patient meet any 2 criteria? No. Patient's initial sepsis screen is negative. Does the patient have a suspected source of infection? No. Patient's initial sepsis screen is negative. Care prior to arrival: None. 22:44 Method Of Arrival: Wheelchair cc3 22:44 Acuity: GATO 3 cc3 Triage Assessment: 22:25 General: Appears in no apparent distress. uncomfortable, Behavior is cooperative, cc3 appropriate for age, crying. Pain: Complains of pain in right arm, right shoulder, right hand, right buttock Pain currently is 10 out of 10 on a pain scale. Quality of pain is described as aching, Pain began 30 min ago. EENT: No signs and/or symptoms were reported regarding the EENT system. Neuro: Level of Consciousness is awake, alert, obeys commands, Oriented to person, place, time, situation, Appropriate for age. Cardiovascular: Denies chest pain, Heart tones S1 S2 present Capillary refill < 3 seconds in bilateral fingers Patient's skin is warm and dry. Respiratory: Airway is patent Respiratory effort is even, unlabored, Respiratory pattern is regular, symmetrical, Breath sounds are clear bilaterally. GI: Abdomen is flat, Bowel sounds present X 4 quads. Abd is soft and non tender X 4 quads. : No signs and/or symptoms were reported regarding the genitourinary system. Derm: Skin is intact, is healthy with good turgor, Skin is pink, warm \\T\\ dry. normal. Musculoskeletal: Circulation, motion, and sensation intact. Range of motion: limited in right arm. Injury Description: right arm \\T\\ shoulder injury. 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 - Hysterectomy cc3 Historical: - Allergies: 22:25 ACETAMINOPHEN; cc3 22:25 Ciprofloxacin HCl; cc3 22:25 Clarithromycin; cc3 22:25 Codeine; cc3 22:25 Hydrocodone-Acetaminophen; cc3 22:25 Iodine; cc3 22:25 Latex, Natural Rubber; cc3 22:25 Levothyroxine Sodium; cc3 22:25 Metronidazole HCl; cc3 22:25 propoxyphene napsylate; cc3 22:25 Sulfa (Sulfonamide Antibiotics); cc3 22:25 thyroid (pork); cc3 22:25 bioxin; cc3 - Home Meds: 22:25 unithyroid [Active]; Cytomel Oral [Active]; Metformin Oral [Active]; Aldactone Oral cc3 [Active]; Linzess oral oral [Active]; Singulair Oral [Active]; Zyrtec Oral [Active]; multivitamins [Active]; - PMHx: 22:25 Hernia; Hypothyroidism; IBS; cc3 22:25 malrotation of the duodenum; hiatal hernia; stomach lining hernia; 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 - Social history:: Smoking status: Patient/guardian denies using tobacco, never smoked. - Ebola Screening: : No symptoms or risks identified at this time. - Family history:: not pertinent. - Hospitalizations: : No recent hospitalization is reported. Screenin:25 Abuse screen: Denies threats or abuse. Denies injuries from another. Nutritional cc3 screening: No deficits noted. Tuberculosis screening: No symptoms or risk factors identified. Fall Risk Ambulatory Aid- None/Bed Rest/Nurse Assist (0 pts). Gait- Normal/Bed Rest/Wheelchair (0 pts) Mental Status- Oriented to own ability (0 pts). Assessment: 22:25 General: see triage assessment. cc3 23:18 Reassessment: Patient appears in no apparent distress at this time. Patient and/or cc3 family updated on plan of care and expected duration. Pain level reassessed. Patient is alert, oriented x 3, equal unlabored respirations, skin warm/dry/pink. 07/16 00:25 Reassessment: Patient appears in no apparent distress at this time. Patient and/or cc3 family updated on plan of care and expected duration. Pain level reassessed. Patient is alert, oriented x 3, equal unlabored respirations, skin warm/dry/pink. Patient states feeling better. Patient states symptoms have improved. 01:50 Reassessment: Patient appears in no apparent distress at this time. Patient and/or cc3 family updated on plan of care and expected duration. Pain level reassessed. Patient is alert, oriented x 3, equal unlabored respirations, skin warm/dry/pink. Dr. Andrade discharged the patient home with prescription given. No IV cannula in situ. Patient left ER vitally stable and ambulatory with her . No valuables left in the patient's room. Patient denies pain at this time. Patient states feeling better. Patient states symptoms have improved. Vital Signs: 07/15 22:25 BP 118 / 60; Pulse 77; Resp 20 S; Temp 98.1(O); Pulse Ox 99% on R/A; Weight 65.32 kg cc3 (R); Height 5 ft. 1 in. (154.94 cm) (R); Pain 10/10; 23:30 BP 128 / 76; Pulse 84; Resp 19 S; Pulse Ox 99% on R/A; cc3 07/16 00:32 BP 108 / 61; Pulse 76; Resp 18 S; Pulse Ox 96% on R/A; Pain 7/10; cc3 01:30 BP 115 / 67; Pulse 75; Resp 16 S; Pulse Ox 98% on R/A; Pain 4/10; cc3 07/15 22:25 Body Mass Index 27.21 (65.32 kg, 154.94 cm) cc3 ED Course: 07/15 22:21 Patient arrived in ED. cf2 22:25 Patient has correct armband on for positive identification. Placed in gown. Bed in low cc3 position. Call light in reach. Side rails up X2. Pulse ox on. NIBP on. 22:25 Arm band placed on left wrist. Patient notified of wait time. cc3 22:26 Matheus Andrade MD is Attending Physician. wa 22:27 Becky Gusman is Primary Nurse. cc3 22:47 Triage completed. cc3 07/16 00:27 Chest Pa And Lat (2 Views) XRAY In Process Unspecified. EDMS 00:27 Shoulder Right (2 View) XRAY In Process Unspecified. EDMS 00:27 Pelvis XRAY In Process Unspecified. EDMS 01:19 Heriberto Keen MD is Referral Physician. wa 01:50 No provider procedures requiring assistance completed. Patient did not have IV access cc3 during this emergency room visit. Administered Medications: 07/15 23:00 Drug: Zofran 4 mg Route: PO; cc3 23:30 Follow up: Response: No adverse reaction; Nausea is decreased cc3 23:05 Drug: morphine 5 mg {Note: RASS 0.} Route: IM; Site: left gluteus; cc3 23:30 Follow up: Response: No adverse reaction; Pain is decreased; RASS: Alert and Calm (0) cc3 07/16 01:14 CANCELLED (Duplicate Order): morphine 5 mg IM once; RASS on ADMIN: Combtv4, Very cc3 Agttd3, Agttd2, Rstlss1, AlertClm0, Drwsy-1, Lt Sdtn-2, Mod Sdtn-3, Dp Sdtn-4, UnArsble-5 01:20 Drug: Motrin 600 mg Route: PO; cc3 01:50 Follow up: Response: No adverse reaction; Pain is decreased cc3 01:25 Drug: morphine 5 mg {Note: RASS 0.} Route: IM; Site: right gluteus; cc3 01:50 Follow up: Response: No adverse reaction; Pain is decreased; RASS: Alert and Calm (0) cc3 Outcome: 01:19 Discharge ordered by . wa 01:50 Discharged to home ambulatory, with family. cc3 01:50 Condition: stable 01:50 Discharge instructions given to patient, Instructed on discharge instructions, follow up and referral plans. medication usage, Demonstrated understanding of instructions, follow-up care, medications, Prescriptions given X 1. 01:54 Patient left the ED. cc3 Signatures: Dispatcher [employer] Nidia Rodriguez RN RN bb Appiah, MD MD willie Jarvis Charlene cc3 Swathi Dawson 2 Corrections: (The following items were deleted from the chart) 00:05 07/15 23:[address] Andrade for pt's breast exam sharon herrera
--- NOTE | 2019-07-16 01:21 | EDPHYS ---
Physician Documentation [facility] Name: Tyesha Hernandez Age: 54 yrs Sex: Female : 1965 Arrival Date: 07/15/2019 Time: 22:21 Bed 20 Private MD: ED Physician Matheus Andrade HPI: 07/15 23:39 This 54 yrs old Female presents to ER via Wheelchair with complaints of wa Shoulder Injury, Shoulder Pain. 23:39 The patient or guardian complains of pain, that is acute. right shoulder. Context: The wa problem was sustained at home, resulted from a fall, The patient experiences decreased range of motion, The patient reports no obvious deformity. Onset: The symptoms/episode began/occurred just prior to arrival. Modifying factors: the symptoms are alleviated by nothing. The symptoms are aggravated by movement, rotation of arm. Associated signs and symptoms: The patient has no apparent associated signs or symptoms. Severity of symptoms: At their worst the symptoms were moderate, in the emergency department the symptoms are unchanged. Treatment prior to arrival includes: no previous treatment. The patient has not experienced similar symptoms in the past. The patient has not recently seen a physician. 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 - Hysterectomy cc3 Historical: - Allergies: 22:25 ACETAMINOPHEN; cc3 22:25 Ciprofloxacin HCl; cc3 22:25 Clarithromycin; cc3 22:25 Codeine; cc3 22:25 Hydrocodone-Acetaminophen; cc3 22:25 Iodine; cc3 22:25 Latex, Natural Rubber; cc3 22:25 Levothyroxine Sodium; cc3 22:25 Metronidazole HCl; cc3 22:25 propoxyphene napsylate; cc3 22:25 Sulfa (Sulfonamide Antibiotics); cc3 22:25 thyroid (pork); cc3 22:25 bioxin; cc3 - Home Meds: 22:25 unithyroid [Active]; Cytomel Oral [Active]; Metformin Oral [Active]; Aldactone Oral cc3 [Active]; Linzess oral oral [Active]; Singulair Oral [Active]; Zyrtec Oral [Active]; multivitamins [Active]; - PMHx: 22:25 Hernia; Hypothyroidism; IBS; cc3 22:25 malrotation of the duodenum; hiatal hernia; stomach lining hernia; 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 - Social history:: Smoking status: Patient/guardian denies using tobacco, never smoked. - Ebola Screening: : No symptoms or risks identified at this time. - Family history:: not pertinent. - Hospitalizations: : No recent hospitalization is reported. ROS: 23:43 Constitutional: Negative for fever, chills, and weight loss, Eyes: Negative for injury, wa pain, redness, and discharge, ENT: Negative for injury, pain, and discharge, Neck: Negative for injury, pain, and swelling, Cardiovascular: Negative for chest pain, palpitations, and edema, Respiratory: Negative for shortness of breath, cough, wheezing, and pleuritic chest pain, Abdomen/GI: Negative for abdominal pain, nausea, vomiting, diarrhea, and constipation, : Negative for injury, bleeding, discharge, and swelling, Skin: Negative for injury, rash, and discoloration, Neuro: Negative for headache, weakness, numbness, tingling, and seizure, Psych: Negative for depression, anxiety, suicide ideation, homicidal ideation, and hallucinations. 23:43 Back: Positive for R buttock pain. 23:43 MS/extremity: Positive for pain, tenderness, of the right shoulder and upper arm. Exam: 23:44 Constitutional: This is a well developed, well nourished patient who is awake, alert, wa and in no acute distress. Head/Face: Normocephalic, atraumatic. Eyes: Pupils equal round and reactive to light, extra-ocular motions intact. Lids and lashes normal. Conjunctiva and sclera are non-icteric and not injected. Cornea within normal limits. Periorbital areas with no swelling, redness, or edema. ENT: Nares patent. No nasal discharge, no septal abnormalities noted. Tympanic membranes are normal and external auditory canals are clear. Oropharynx with no redness, swelling, or masses, exudates, or evidence of obstruction, uvula midline. Mucous membranes moist. Neck: Trachea midline, no thyromegaly or masses palpated, and no cervical lymphadenopathy. Supple, full range of motion without nuchal rigidity, or vertebral point tenderness. No Meningismus. Chest/axilla: Normal chest wall appearance and motion. Nontender with no deformity. No lesions are appreciated. Cardiovascular: Regular rate and rhythm with a normal S1 and S2. No gallops, murmurs, or rubs. Normal PMI, no JVD. No pulse deficits. Respiratory: Lungs have equal breath sounds bilaterally, clear to auscultation and percussion. No rales, rhonchi or wheezes noted. No increased work of breathing, no retractions or nasal flaring. Abdomen/GI: Soft, non-tender, with normal bowel sounds. No distension or tympany. No guarding or rebound. No evidence of tenderness throughout. Skin: Warm, dry with normal turgor. Normal color with no rashes, no lesions, and no evidence of cellulitis. Neuro: Awake and alert, GCS 15, oriented to person, place, time, and situation. Cranial nerves II-XII grossly intact. Motor strength 5/5 in all extremities. Sensory grossly intact. Cerebellar exam normal. Normal gait. Psych: Awake, alert, with orientation to person, place and time. Behavior, mood, and affect are within normal limits. 23:44 Back: pain, that is moderate, of the right low back. 23:44 Musculoskeletal/extremity: Extremities: grossly normal except: noted in the right shoulder: pain, tenderness. Vital Signs: 22:25 BP 118 / 60; Pulse 77; Resp 20 S; Temp 98.1(O); Pulse Ox 99% on R/A; Weight 65.32 kg cc3 (R); Height 5 ft. 1 in. (154.94 cm) (R); Pain 10/10; 23:30 BP 128 / 76; Pulse 84; Resp 19 S; Pulse Ox 99% on R/A; cc3 07/16 00:32 BP 108 / 61; Pulse 76; Resp 18 S; Pulse Ox 96% on R/A; Pain 7/10; cc3 01:30 BP 115 / 67; Pulse 75; Resp 16 S; Pulse Ox 98% on R/A; Pain 4/10; cc3 07/15 22:25 Body Mass Index 27.21 (65.32 kg, 154.94 cm) cc3 Procedures: 01:16 Performed R shoulder sling: pt placed in R shoulder splint. post placement distally wa neurovasc intact. pt tolerated well. MDM: 07/15 22:26 Patient medically screened. md 23:45 Differential diagnosis: fall. r/o FX or dislocation. md 07/16 01:15 Data reviewed: vital signs, nurses notes. Test interpretation: by ED physician or md midlevel provider: CXR: no acute process. R shoulder x-ray: no acute fracture. pelvic x-ray: no acute process. Response to treatment: the patient's symptoms have markedly improved after treatment. 01:18 ED course: received 2 IM injections for pain in ED. will d/c with close f/u with ortho md for further eval. 07/15 22:50 Order name: Chest Pa And Lat (2 Views) XRAY md 07/15 22:50 Order name: Shoulder Right (2 View) XRAY md 07/15 22:51 Order name: Pelvis XRAY md 07/16 00:44 Order name: Sling: R UE; Complete Time: 01:03 md Administered Medications: 07/15 23:00 Drug: Zofran 4 mg Route: PO; cc3 23:30 Follow up: Response: No adverse reaction; Nausea is decreased cc3 23:05 Drug: morphine 5 mg {Note: RASS 0.} Route: IM; Site: left gluteus; cc3 23:30 Follow up: Response: No adverse reaction; Pain is decreased; RASS: Alert and Calm (0) [facility] 07/16 01:14 CANCELLED (Duplicate Order): morphine 5 mg IM once; RASS on ADMIN: Combtv4, Very cc3 Agttd3, Agttd2, Rstlss1, AlertClm0, Drwsy-1, Lt Sdtn-2, Mod Sdtn-3, Dp Sdtn-4, UnArsble-5 01:20 Drug: Motrin 600 mg Route: PO; cc3 01:50 Follow up: Response: No adverse reaction; Pain is decreased cc3 01:25 Drug: morphine 5 mg {Note: RASS 0.} Route: IM; Site: right gluteus; cc3 01:50 Follow up: Response: No adverse reaction; Pain is decreased; RASS: Alert and Calm (0) 3 Disposition: 07/16/19 01:19 Discharged to Home. Impression: acute R shoulder sprain. - Condition is Stable. - Discharge Instructions: Shoulder Sprain. - Prescriptions for Ibuprofen 600 mg Oral Tablet - take 1 tablet by ORAL route every 6 hours As needed take with food; 30 tablet. - Medication Reconciliation Form, Thank You Letter, Antibiotic Education, Prescription Opioid Use form. - Follow up: Heriberto Keen MD; When: 1 - 2 days; Reason: Recheck today's complaints. - Problem is new. - Symptoms have improved. - Notes: follow up with the orthopedist as discussed for further evaluation. he may get MRI to evaluate tendons and ligaments Signatures: Dispatcher [employer] EDMS Matheus Andrade MD MD wa Cordel, Charlene cc3 Corrections: (The following items were deleted from the chart) 01:14 01:13 morphine 5 mg IM once; RASS on ADMIN: Combtv4, Very Agttd3, Agttd2, Rstlss1, cc3 AlertClm0, Drwsy-1, Lt Sdtn-2, Mod Sdtn-3, Dp Sdtn-4, UnArsble-5 ordered. cc3 01:54 01:19 07/16/2019 01:19 Discharged to Home. Impression: acute R shoulder sprain. cc3 Condition is Stable. Forms are Medication Reconciliation Form, Thank You Letter, Antibiotic Education, Prescription Opioid Use. Follow up: Heriberto Keen; When: 1 - 2 days; Reason: Recheck today's complaints. Problem is new. Symptoms have improved. willie
[2019-07-16 02:14] VITALS: TEMP 98.1
[2019-07-16 02:17] VITALS: BP 108/61; O2SAT 96
--- NOTE | 2019-07-16 09:04 | RAD REPORT ---
EXAM DESCRIPTION: Shoulder Right 2 View - 07/16/2019 12:26 am CLINICAL HISTORY: Fall, right shoulder pain COMPARISON: None. TECHNIQUE: Internal and external rotation views of the right shoulder were obtained. FINDINGS: There is no fracture or dislocation. AC joint is normal in appearance. No acute or suspic ious findings. IMPRESSION: Negative two-view right shoulder examination.
--- NOTE | 2019-07-16 09:05 | RAD REPORT ---
EXAM DESCRIPTION: RAD - Chest Pa And Lat (2 Views) - 07/16/2019 12:26 am CLINICAL HISTORY: R shoulder injury. eval clavicle COMPARISON: AP chest August 2014 TECHNIQUE: PA and lateral views of the chest were obtained. FINDINGS: The lungs are clear. Heart size is normal and central vasculature is within normal limit s. No pleural effusion or pneumothorax seen. No gross rib injury identifiable. Right clavicle is in tact. Sternoclavicular and acromioclavicular joints have a normal appearance. No dislocation of the h umeral head. Scapula appears intact. No aortic abnormality. IMPRESSION: Clavicle, right shoulder and right-sided chest structures within normal limits. No acute chest finding seen.
--- NOTE | 2019-07-16 09:06 | RAD REPORT ---
EXAM DESCRIPTION: RAD - Pelvis - 07/16/2019 12:27 am CLINICAL HISTORY: Fall, pelvic and hip pain COMPARISON: None. TECHNIQUE: AP imaging of the pelvis was obtained. FINDINGS: No fracture of the bony pelvis. No fracture, dislocation or other acute hip joint finding. No significant SI joint findings. Lower lumbar degenerative change at the L4-5 disc level. This is only partially imaged. No soft tissue abnormality. IMPRESSION: Negative pelvis for acute or significant findings.
== END 2019-07-16 01:54 | disposition home or self-care (01) ==
LOC: ER 22:19
DX: S43.401A Unspecified sprain of right shoulder joint, initial encounter (principal); W19.XXXA Unspecified fall, initial encounter; Y93.9 Activity, unspecified; Y92.009 Unspecified place in unspecified non-institutional (private) residence as the place of occurrence of the external cause; Z88.1 Allergy status to other antibiotic agents; Z88.2 Allergy status to sulfonamides; Z88.5 Allergy status to narcotic agent; Z88.6 Allergy status to analgesic agent; Z88.8 Allergy status to other drugs, medicaments and biological substances; Z91.040 Latex allergy status; Z91.048 Other nonmedicinal substance allergy status; E03.9 Hypothyroidism, unspecified
CPT/HCPCS: 71046; 72170; 73030; 96372; 99284; J2270 ×2